=== PATIENT | female | born 1975 | race Hispanic/Latino ===

== ENCOUNTER 2019-05-16 22:34 | Emergency (ER) | payer OTHER ==
[~2019-05-16] VITALS: Ht 144.8 cm; Wt 60.8 kg
[2019-05-16] MEDS ORDERED: KETOROLAC TROMETHAMINE 60 MG/2 ML VIAL IM ONE (23:00)
[2019-05-16] MEDS ORDERED: KETOROLAC TROMETHAMINE 30 MG/ML VIAL ONE (23:05)
[2019-05-16] MEDS ORDERED: ULTRAM50 MG PO (23:07)
[2019-05-16] MEDS ORDERED: CYCLOBENZAPRINE5 MG PO (23:07)
[2019-05-16] MEDS ORDERED: NAPROSYN500 MG PO (23:07)
[2019-05-16] MEDS ORDERED: COLACE100 MG PO (23:08)
--- NOTE | 2019-05-16 23:48 | Diagnostic Imaging Report ---
Lumbar spine two views CPT code: 61179 Indication: Low back pain Technique: A.P. and lateral views of the lumbar spine obtained without comparison. Findings: There are five non rib bearing vertebral bodies. Alignment is maintained on the AP and lateral views. The transverse processes are intact. The vertebral body heights are well maintained. There is no significant joint space narrowing or endplate sclerosis or osteophyte formation. No abnormalities of the sacroiliac joints. The sacrum is normal. The spinous processes are normally aligned. There is no evidence of subluxation. The bowel gas pattern is unremarkable. IMPRESSION: No malalignment, subluxation or appreciable disc space narrowing. Signed by: Dr. Fawad Swartz MD on 05/16/2019 11:44 PM
== END 2019-05-17 | disposition home or self-care (01) ==
LOC: FSED 22:34
DX: M54.5 Low back pain (principal); M54.16 Radiculopathy, lumbar region
CPT/HCPCS: 72100; 81003; 81025; 99283; J1885

== ENCOUNTER 2022-02-11 17:06 | Emergency (ER) | payer BC, OTHER ==
[~2022-02-11] VITALS: Ht 144.8 cm; Wt 60.8 kg
[~2022-02-11 17:06] MED LIST: COLACE100 MG PO; CYCLOBENZAPRINE5 MG PO; NAPROSYN500 MG PO; ULTRAM50 MG PO
[2022-02-11] MEDS ORDERED: FAMOTIDINE 20 MG/2 ML VIAL IV STA (17:29)
[2022-02-11] MEDS ORDERED: SODIUM CHLORIDE 0.9% 1000ML 1,000 ML IV STA (17:29)
[2022-02-11] MEDS ORDERED: Morphine 4mg Syringe 4 MG/ML INJ IV STA (17:29)
[2022-02-11] MEDS ORDERED: ONDANSETRON HCL INJ 2MG/ML 2ML 2 MG/ML VIAL IV STA (17:29)
[2022-02-11 17:46] LABS: BASOPHILS # (AUTO) 0.1 (0.0-0.1); BASOPHILS % 1.2 % (0.0-1.0); EOSINOPHILS % 0.1 % (0.0-6.0); HEMATOCRIT 35.6 % (34.2-44.1); HEMOGLOBIN 10.5 g/dL (12.0-16.0); LYMPHOCYTES # (AUTO) 2.1 (1.0-3.2); LYMPHOCYTES % 18.8 % (18.0-39.1); MEAN CORPUSCULAR HEMOGLOBIN 21.9 pg (28-32); MEAN CORPUSCULAR HGB CONC 29.5 g/dL (31-35); MEAN CORPUSCULAR VOLUME 74.3 fL (81-99); MONOCYTES # (AUTO) 0.5 (0.2-0.8); MONOCYTES % 4.7 % (4.4-11.3); NEUTROPHILS # (AUTO) 8.1 (2.1-6.9); NEUTROPHILS % 74.8 % (38.7-80.0); PLATELET COUNT 372 x10e3/uL (140-360); RED BLOOD COUNT 4.79 x10e6/uL (3.6-5.1); RED CELL DISTRIBUTION WIDTH 25.9 % (11.7-14.4)
[2022-02-11 17:47] LABS: CLARITY,URINE CLEAR (CLEAR); COLOR,URINE YELLOW (YELLOW); KETONES,URINE NEGATIVE (NEGATIVE); LEUKOCYTE ESTERASE ,URINE NEGATIVE (NEGATIVE); NITRITE,URINE NEGATIVE (NEGATIVE); PROTEIN,URINE DIPSTICK NEGATIVE (NEGATIVE); URINE UROBILINOGEN 0.2 mg/dL (0.2 - 1)
[2022-02-11 17:58] LABS: ALBUMIN 3.9 g/dL (3.5-5.0); ANION GAP 13.7 mmol/L (8-16); CALCIUM 8.3 mg/dL (8.4-10.2); CREATININE, SERUM 0.83 mg/dL (0.57-1.11); POTASSIUM 3.7 mmol/L (3.5-5.1)
[2022-02-11 17:59] LABS: AMORPHOUS SEDIMENT,URINE MODERATE (FEW); BACTERIA,URINE MODERATE /HPF; EPITHELIAL CELLS,URINE MODERATE /LPF
[2022-02-11] MEDS ORDERED: IOPAMIDOL 370 MG/ML 100 ML INFUS..BTL INJ ONE (18:22)
== END 2022-02-11 20:25 | disposition home or self-care (01) ==
LOC: ER 17:14
DX: R10.13 Epigastric pain (principal); K80.20 Calculus of gallbladder without cholecystitis without obstruction; R11.0 Nausea
CPT/HCPCS: 36415; 71045; 74177; 80053; 81001; 81025; 83690; 85025; 93005; 99284; J2270; J2405; J7030; Q9967